=== PATIENT | male | born 1960 ===

== ENCOUNTER 2019-02-12 05:30 | Day surgery (SDC) | payer OTHER ==
[~2019-02-12 05:30] MED LIST: ALLOPURINOL100 MG
== END 2019-02-12 11:35 | disposition home or self-care (01) ==
LOC: CIR.AMB 05:30
DX: M1A.0411 Idiopathic chronic gout, right hand, with tophus (tophi) (principal)

== ENCOUNTER → 2019-12-23 | Outpatient (CLI) | payer OTHER | END | disposition home or self-care (01) | LOC: NUCLEAR 07:45 | PROVIDERS: ATTEND Internal Medicine Cardiovascular Disease | DX: I10 Essential (primary) hypertension (principal) ==

== ENCOUNTER 2019-12-25 08:36 | Outpatient (CLI) | payer OTHER | END 2019-12-25 08:42 | disposition home or self-care (01) | LOC: RX STUDY 08:36 | PROVIDERS: ATTEND Internal Medicine Cardiovascular Disease | DX: K21.9 Gastro-esophageal reflux disease without esophagitis (principal) ==